=== PATIENT | female | born 1965 | race Caucasian/White ===

== ENCOUNTER → 2017-09-17 | Outpatient (REF) | payer OTHER | LOC: M LAB REF 17:22 | DX: N39.0 Urinary tract infection, site not specified (principal) | CPT/HCPCS: 87186 ==

== ENCOUNTER → 2021-11-11 | Outpatient (CLI) | payer OTHER ==
[~2021-11-11] MED LIST: ACET500T PO; ASPI81TA4 PO; CETI10TA PO; CIPR-250 PO; COZA100T2 PO; COZA1TAB PO; CYCL-707 PO; CYCL5TAB5 PO; FLEX5TAB3 PO; GABA100C PO; LIDO1OIN2 TOP; LIDO5OIN TOP; NEUR800T PO; OMEP40CA2 PO; OXYC-141 PO; OXYC-208 PO; TAPA5TAB PO; TOPA50TA PO; TUMS500C PO; TYLE325T5 PO; VIT B COMPLEX PO; VITAD1000T PO; VITATAB11 PO; VOLT100T PO; Vitamin D PO; ZOCO10TA PO; [UNRECOGNIZED DRUG - OTHER] IM
== END ==
LOC: M RAD 14:14
PROVIDERS: ATTEND Physician Assistant
DX: I65.23 Occlusion and stenosis of bilateral carotid arteries (principal)